=== PATIENT | female | born 1950 | race Caucasian/White ===

== ENCOUNTER 2018-03-16 22:33 | Inpatient (IN) | payer OTHER ==
[~2018-03-16] VITALS: Ht 162.6 cm; Wt 93.9 kg
[2018-03-16 22:36] VITALS: Ht 162.6 cm; Wt 93.9 kg
[2018-03-16 23:32] LABS: BASOPHIL % 0.3 % (0-2); PLATELET COUNT 257 x10^3mcL (130-400); RED CELL DISTRIBUTION WIDTH 13.9 % (11.5-14.5)
[2018-03-16 23:45] LABS: CALCIUM 8.5 mg/dL (8.5-10.1); CARBON DIOXIDE 27.2 mmol/L (21-32); CHLORIDE SERUM 103 mmol/L (98-107); CREATININE SERUM 0.6 mg/dL (0.6-1.0); GFR1 > 60 mL/min; GLUCOSE SERUM 104 mg/dL (74-106); POTASSIUM SERUM 4.6 mmol/L (3.5-5.1); SODIUM SERUM 137 mmol/L (136-145)
[2018-03-16 23:49] LABS: ALBUMIN 3.5 g/dL (3.4-5.0); ALKALINE PHOSPHATASE 90 U/L (46-116); ALT/SGPT 24 U/L (14-59); AMYLASE 58 U/L (25-115); BILIRUBIN TOTAL 0.5 mg/dL (0.20-1.00); LIPASE 147 IU/L (73-393); TOTAL PROTEIN, SERUM 7.2 g/dL (6.4-8.2)
[2018-03-17 00:02] LABS: AST/SGOT 20 U/L (15-37)
[2018-03-17] MEDS ORDERED: TRAMADOL HCL50 MG PO (01:26)
[2018-03-17] MEDS ORDERED: CELEBREX200 MG PO (01:26)
[2018-03-17] MEDS ORDERED: HEARTBURN TREAT15 MG PO (01:27)
[2018-03-17 02:01] VITALS: BP 137/67
[2018-03-17 02:10] LABS: FREE T4 1.17 ng/dL (0.76-1.46); FREE THYROXINE INDEX 3.4 ug/dL (1.4-4.5)
[2018-03-17 02:19] LABS: MAGNESIUM 2.2 mg/dL (1.8-2.4); PHOSPHOROUS 3.4 mg/dL (2.5-4.9)
[2018-03-17 02:35] LABS: CHOLESTEROL/HDL RATIO 2.5
[2018-03-17 02:47] LABS: T3 TOTAL 1.1 ng/mL
[2018-03-17 05:58] VITALS: BP 129/62
[2018-03-17 06:05] LABS: UA SPECIFIC GRAVITY <=1.005 (1.005-1.035); microscopic required? YES; urine erythrocyte TRACE (NEGATIVE)
[2018-03-17 06:11] LABS: AMPHETAMINE QUAL UR NONE DETECTED (See below)
[2018-03-17 06:17] LABS: BASOPHIL % 0.4 % (0-2); PLATELET COUNT 216 x10^3mcL (130-400); RED CELL DISTRIBUTION WIDTH 13.9 % (11.5-14.5)
[2018-03-17 06:28] LABS: CALCIUM 7.6 mg/dL (8.5-10.1); CARBON DIOXIDE 25.2 mmol/L (21-32); CHLORIDE SERUM 109 mmol/L (98-107); CREATININE SERUM 0.6 mg/dL (0.6-1.0); GFR1 > 60 mL/min; GLUCOSE SERUM 94 mg/dL (74-106); SODIUM SERUM 142 mmol/L (136-145)
[2018-03-17 08:31] VITALS: BP 114/58
[2018-03-17 17:01] VITALS: BP 135/54
[2018-03-17 20:14] VITALS: BP 133/66
[2018-03-18 05:47] VITALS: BP 103/58
[2018-03-18 07:12] LABS: BASOPHIL % 0.3 % (0-2); PLATELET COUNT 210 x10^3mcL (130-400); RED CELL DISTRIBUTION WIDTH 14.1 % (11.5-14.5)
[2018-03-18 07:14] LABS: CALCIUM 7.8 mg/dL (8.5-10.1); CARBON DIOXIDE 29.1 mmol/L (21-32); CHLORIDE SERUM 110 mmol/L (98-107); CREATININE SERUM 0.5 mg/dL (0.6-1.0); GFR1 > 60 mL/min; GLUCOSE SERUM 80 mg/dL (74-106); MAGNESIUM 2.2 mg/dL (1.8-2.4); PHOSPHOROUS 3.8 mg/dL (2.5-4.9); POTASSIUM SERUM 4.1 mmol/L (3.5-5.1); SODIUM SERUM 143 mmol/L (136-145)
[2018-03-18 08:15] VITALS: BP 119/59
[2018-03-18 15:19] VITALS: BP 119/59
== END 2018-03-18 16:23 | disposition home or self-care (01) | DRG 391 ==
LOC: ED 22:33 → MU 03-17 00:38
PROVIDERS: Internal Medicine; Specialist
DX: K59.00 Constipation, unspecified (principal); N17.0 Acute kidney failure with tubular necrosis; M06.9 Rheumatoid arthritis, unspecified; G47.30 Sleep apnea, unspecified; F17.210 Nicotine dependence, cigarettes, uncomplicated; Z68.33 Body mass index [BMI] 33.0-33.9, adult; Z98.84 Bariatric surgery status
CPT/HCPCS: 84439; J0694; J1885; J2270; J3010; J7030; Q0092; Q0162; Q9967

== ENCOUNTER 2018-10-01 07:37 | Day surgery (SDC) | payer OTHER ==
[~2018-10-01] VITALS: Ht 162.6 cm; Wt 93.0 kg
[~2018-10-01 07:37] MED LIST: CELEBREX200 MG PO; HEARTBURN TREAT15 MG PO; TRAMADOL HCL50 MG PO
[2018-10-01 09:22] VITALS: BP 125/56
[2018-10-01 14:40] VITALS: BP 133/64
== END 2018-10-01 12:49 | disposition home or self-care (01) ==
LOC: GI 07:37 → OR 10:30 → GI 10:30
PROVIDERS: Internal Medicine
PROC: 0DJD8ZZ Inspection of Lower Intestinal Tract, Via Natural or Artificial Opening Endoscopic (ICD-10-PCS; principal; 2018-10-01 11:00)
DX: K57.30 Diverticulosis of large intestine without perforation or abscess without bleeding (principal); K59.09 Other constipation; K63.89 Other specified diseases of intestine; K64.4 Residual hemorrhoidal skin tags; K21.9 Gastro-esophageal reflux disease without esophagitis; F17.210 Nicotine dependence, cigarettes, uncomplicated; M19.90 Unspecified osteoarthritis, unspecified site; E66.9 Obesity, unspecified; Z68.34 Body mass index [BMI] 34.0-34.9, adult
CPT/HCPCS: 45378; J1200; J1610; J2250; J2310; J3010; J3490